=== PATIENT | female | born 1985 | race Caucasian/White ===

== ENCOUNTER → 2019-01-18 11:31 | Outpatient (CLI) | payer OTHER, SELFPAY ==
[2019-01-18 12:06] LABS: Add Manual Diff / Slide Review NO; Basophils Absolute Auto 0 /uL (0-100); Basophils Percent Auto 0.4 % (0-2); Eosinophils Absolute Auto 200 /uL (0-450); Eosinophils Percent Auto 1.9 % (2-4); Hematocrit 41.6 % (36-46); Hemoglobin 14.1 g/dL (12.0-16.0); Lymphocytes Absolute Auto 2500 /uL (1100-4500); Lymphocytes Percent Auto 24.4 % (25-40); Mean Corpuscular HGB Conc 33.8 % (30-36); Mean Corpuscular Hemoglobin 31.1 PG (26-34); Mean Corpuscular Volume 91.9 fL (80-100); Monocytes Absolute Auto 400 /uL (0-900); Monocytes Percent Auto 4.3 % (3-14); Neutrophils Absolute Auto 7000 /uL (1500-7000); Platelet Count 182 X10^3/uL (150-400); Red Blood Cell Count 4.52 X10^6/uL (4.0-5.2); Red Cell Distribution Width 12.7 % (11.6-14.8); White Blood Cell Count 10.1 X10^3/uL (4.5-11.0)
[2019-01-18 12:21] LABS: Appearance Urine UA CLEAR; Bilirubin Urine UA NEGATIVE (NEGATIVE); Color Urine UA YELLOW; Glucose Urine UA NEGATIVE (Negative); Ketones Urine UA NEGATIVE (NEGATIVE); Leukocyte Esterase Urine UA NEGATIVE (NEGATIVE); Nitrite Urine UA NEGATIVE (Negative); Occult Blood Urine UA NEGATIVE (Negative); Protein Urine UA NEGATIVE (Negative); Specific Gravity Urine UA 1.025 (1.000-1.035); Urobilinogen Urine UA 0.2 E.U./dL (0.2)
[2019-01-18 16:56] LABS: Hepatitis B Surface Antigen NEGATIVE s/c (NEGATIVE); Rubella Antibody IgG 21.8 IU/mL (>15)
[2019-01-18 17:14] LABS: Hep C Virus Ab w/Reflex Quant NEGATIVE s/c (NEGATIVE)
[2019-01-18 17:15] LABS: HIV 1 and 2 Antibody NEGATIVE (NEGATIVE)
[2019-01-19 14:40] LABS: RPR Screen Nonreactive (Nonreactive)
== END ==
PROVIDERS: Visit Provider Specialist
DX: Z34.01 Encounter for supervision of normal first pregnancy, first trimester (principal)
CPT/HCPCS: 36415; 80055; 81003; 86703; 86787; 86803; 86850; 86900; 86901; 87086

== ENCOUNTER → 2019-07-20 12:12 | Outpatient (CLI) | payer OTHER, SELFPAY ==
[2019-07-21 14:29] LABS: Strep Grp B PCR NEG for Grp B Strep
== END ==
DX: Z34.83 Encounter for supervision of other normal pregnancy, third trimester (principal); Z3A.36 36 weeks gestation of pregnancy
CPT/HCPCS: 87653

== ENCOUNTER 2019-08-10 19:28 | Inpatient (IN) | payer OTHER, SELFPAY ==
--- NOTE | 2019-08-10 19:45 | P.HPOB_ITS ---
OB HPI Date/Time Date of admission: 08/10/19 Date Patient Seen: 08/10/19 Time Patient Seen: 19:45 History of Present Condition Chief complaint: OBS : 1 Para: 0 Estimated Date of Delivery: 08/16/19 Estimated Gestational Age (weeks): 39 Narrative: Charlotte Cano is a 34 year old female admitted for Prostin induction for distance from the hospital Indications Indication for induction OB: maternal distance History of Present care: good care, initiated at week # (9), number of visits (12) and pounds weight gain (44) Dating criteria: LMP confirmed by 1st trimester US Ultrasounds: normal mid trimester US Obstetrical complications: none Medical complications: none Preadmission Labs Blood type: B (+) positive -: Antibody screen: negative, GBS status: negative, HBsAG: negative, HIV: negative and RPR/VDLR: negative -: Chlamydia screen: not detected and Gonorrhea screen: not detected -: Rubella: immune and Varicella: immune HCAB: negative 1 hr GTT: 192 3 hr GTT: 1 hr (165), 2 hr (159) and 3 hr (84) Fasting blood glucose: 92 Evaluation Evaluation Baseline heart rate: 130 Variability: Moderate (11-25) monitor accelerations: Present monitor decelerations: Absent Contraction Frequency (minutes): 5 Uterine Contraction Intensity: Mild Category of Tracing: I Cervical dilation (cm): 1 Cervical effacement (%): 0 station: -2 [facility] Medical History (Updated 08/10/19 @ 19:51 by Claudia Sanz MD) Anxiety (Acute) Asthma (Acute) Interstitial cystitis (Acute) Family History (Updated 08/10/19 @ 19:52 by Claudia Sanz MD) Mother Hyperlipidemia Multiple myeloma Diabetes mellitus Social History Smoking Status: Never smoker Family History (Updated 08/10/19 @ 19:52 by Claudia Sanz MD) Mother Hyperlipidemia Multiple myeloma Diabetes mellitus Social History Smoking Status: Never smoker Meds Home Medications and Allergies Home Medications Medication Instructions Recorded Confirmed Type albuterol sulfate 90 mcg/actuation 1 inhalation INHALATION Q4-6H PRN 01/13/19 08/11/19 History breath activated powder inhaler prenat.vits,rasheed,[id number] 1 tab PO DAILY 01/13/19 08/11/19 History omeprazole 20 mg capsule,delayed 20 mg PO DAILY #30 cap 05/06/19 08/11/19 Rx release Allergies Allergy/AdvReac Type Severity Reaction Status Date / Time No Known Drug Allergies Allergy Verified 01/13/19 13:30 Review of Systems Review of Systems Narrative: Patient denies headaches, scotomata, epigastric pain. No fevers. Good movement. Brown discharge but no leakage of fluid. ROS Unobtainable: All systems reviewed & are unremarkable except as noted in HPI and below Exam Vital Signs (past 8 hours): Blood pressure 134/65, pulse of 90, temperature 36.4? Narrative Exam Narrative: HEENT exam within normal limits. Lungs are clear to auscultation percussion. Heart is regular rate and rhythm no S3-S4 or murmurs. Abdomen is gravid. is vertex. Extremities with +1 edema and nontender. Objective Labs Result Diagrams: 08/11/19 08:35 Assessment and Plan Assessment and Plan Assessment and Plan narrative: Term at distance from hospital for Prostin ripening of cervix with probable Pitocin in a.m. if favorable
[2019-08-11] MEDS: miSOPROStol 25 MCG TABLET VAG (02:05)
[2019-08-11] MEDS: LACTATED RINGERS 1,000 ML 100 ML IV ×3 (08:30→16:42)
[2019-08-11 08:50] VITALS: BP 134/65
[2019-08-11 08:58] LABS: Add Manual Diff / Slide Review NO; Basophils Absolute Auto 0 /uL (0-100); Basophils Percent Auto 0.3 % (0-2); Eosinophils Absolute Auto 100 /uL (0-450); Hemoglobin 13.7 g/dL (12.0-16.0); Lymphocytes Absolute Auto 2300 /uL (1100-4500); Lymphocytes Percent Auto 16.4 % (25-40); Mean Corpuscular HGB Conc 34.2 % (30-36); Mean Corpuscular Volume 93.6 fL (80-100); Monocytes Absolute Auto 700 /uL (0-900); Monocytes Percent Auto 5.1 % (3-14); Neutrophils Absolute Auto 10600 /uL (1500-7000); Neutrophils Percent Auto 77.2 % (50-75); Platelet Count 145 X10^3/uL (150-400); Red Blood Cell Count 4.27 X10^6/uL (4.0-5.2); White Blood Cell Count 13.8 X10^3/uL (4.5-11.0)
[2019-08-11] MEDS: OXYTOCIN PREMIX 30 UNIT/500 ML PLAST..BAG IV (09:41)
[2019-08-11] MEDS: FENT 2MCG/ML BUPIV 0.125% EPI 200 MCG/100 ML PLAST..BAG 10 MCG EPIDURAL (12:53)
--- NOTE | 2019-08-11 18:35 | PM.OBPRVD ---
Labor & Delivery Delivery date: 08/11/19 Intrapartal events: Prolonged 2nd Stage > 2.5 hours Cervical ripening method: per misoprostal protocol Delivery augmentation: pitocin Delivery monitor: external FHT and external uterine L&D Laceration Description: Vaginal - 1st Degree Delivery repair: chromic (3-0) Estimated blood loss (mL): 100 Anesthesia type: Epidural [place] Baby 1: gender: Male Presentation: vertex position: Right Occiput Anterior Placenta delivery description: Spontaneous cord vessel description: Nuchal Cord score (1 min): 8 score (5 min): 9 Narrative: Patient arrived on Labor and delivery for induction is for distance from the hospital. She received 1 dose of prostaglandins. She had Pitocin augmentation of labor. She received an epidural catheter for pain control. She had category 1 to category 2 tracing throughout labor. With pushing she had variable decelerations. She delivered spontaneously, over an intact perineum. The had a tight nuchal and body cord. The infant was placed on maternal abdomen. After the cord stopped pulsating the cord was clamped, cut, and cord bloods obtained. The placenta delivered spontaneously, intact, with 3 vessels. There were no cervical or perineal tears. She had a first-degree midline vaginal tear that was repaired with 3 0 chromic suture. Estimated blood loss was between 75 and 100 cc. Both mother doing well. Plan for aftercare: Routine care
[2019-08-11] MEDS: IBUPROFEN 600 MG TABLET PO (21:23)
[2019-08-11] MEDS: DERMOPLAST SPRAY 20% 60 ML 1 SPRAY TOP (21:24)
[2019-08-12 05:31] LABS: Hematocrit 34.8 % (36-46); Hemoglobin 12.1 g/dL (12.0-16.0)
[2019-08-12] MEDS: DOCUSATE 250 MG CAPSULE PO (10:57)
[2019-08-12] MEDS: IBUPROFEN 600 MG TABLET PO ×3 (10:57→23:37)
--- NOTE | 2019-08-12 15:03 | P.PNOB_ITS ---
Subjective - OB Subjective Patient comments: no complaints [place] baby status: doing well feeding status: exclusively breast feeding Date Patient Seen: 08/12/19 Time Patient Seen: 15:03 Interval history: day 1. Vaginal delivery. No headaches or scotomata. No epigastric pain. Patient is only needing Motrin for pain. She is urinating and ambulating well. Exam Vital Signs (past 8 hours): Blood pressure 107/63, pulse 74, temperature 98.3? Narrative Exam Narrative: Abdomen is soft, nontender. Uterus is firm, at U, nontender. Mild lochia. Extremities with trace edema and nontender. Blood type is B positive, she is rubella immune, she received Tdap in the 3rd trimester. Objective Labs Result Diagrams: 08/12/19 05:05 Labs: Laboratory Results - last 24 hr 08/12/19 05:05 Hgb 12.1 Hct 34.8 L Assessment & Plan Plan day: 1 plan OB: routine care Time Spent With Patient Time: Total time spent is greater than 50% in coordination of care (as documented) at patient's floor/unit and/or counseling patient: Time with patient: 15-24 minutes
[2019-08-13] MEDS: IBUPROFEN 600 MG TABLET PO ×2 (05:30→11:20)
[2019-08-13] MEDS: DOCUSATE 250 MG CAPSULE PO (09:02)
[2019-08-13 11:30] VITALS: BP 134/82; PULSE 96; RESP 16; TEMP 36.4
--- NOTE | 2019-08-13 11:33 | PM.OBDS.1 ---
Discharge Providers Provider Date of admission: 08/10/19 19:28 Discharge Date: 08/13/19 Consults: 08/10/19 19:50 Consult to Anesthesiology Urgent Comment: Consulting Provider: Anesthesiologist Reason for consultation: Epidural Has provider been notified: No 08/11/19 20:33 Consult to Cup Trimming Machine Operator Routine Comment: Discharge provider: Claudia Sanz MD Summary Hospital Course Date Patient Seen: 08/13/19 Time Patient Seen: 08:00 Procedures: Prostin induction, epidural catheter, spontaneous vaginal delivery, repair first-degree tear Hospital Course: Patient was admitted for Prostin induction Peripartum Data Delivery Method: Natural Vaginal Laceration description: Vaginal - 1st Degree complications: none [place] 1: Gender: Male Disposition of : home Discharge Diagnosis (1) Vaginal delivery: Status: Acute Status at Discharge Cognitive/behavioral status at discharge: oriented Functional status at discharge: independent ambulation Overall status at discharge: patient is progressing back to baseline Time Spent with Patient Time attestation: Total time spent providing and/or coordinating discharge services: Time spent: Less than 30 minutes Objective Labs Result Diagrams: 08/12/19 05:05 Exam Vital Signs (past 8 hours): Blood pressure 134/84, pulse 96, temperature 97.8? Narrative Exam Narrative: Abdomen is soft, nontender. Uterus is firm, at U, nontender. Mild lochia. Extremities with +1 edema and nontender. Blood type is B positive, she is rubella immune. Discharge Plan Discharge Plan Patient Disposition: Home Discharge Med Rec/Prescriptions Prescriptions: Continued prenat.vits,rasheed,qpb-hjmr-ehxli tablet 1 tab PO DAILY RF: 0 albuterol sulfate 90 mcg/actuation aerosol powdr breath activated 1 inhalation INHALATION Q4-6H PRN (Reason: Shortness Of Breath) RF: 0 omeprazole 20 mg capsule,delayed release(DR/EC) 20 mg PO DAILY Qty: 30 RF: 3 Follow up/Referrals: Claudia Sanz MD [Physician] - 1 Month (Appointment on Friday,September at 3:00pm for check.) Provider Discharge Instructions Diet: Regular Activity: Nothing in vagina for 4 weeks Skin/Wound/Dressing Care Report to your healthcare provider any signs of infection, such as:: chills, fever and increased pain Visit Report/Discharge Packet Instructions: DI for Labor and Delivery, Vaginal Discharge Data Attending Provider: Claudia Sanz Admit Date/Time: 08/10/19 19:28 Discharges patient from system. Discharge Date/Time: 08/13/19 14:00
== END 2019-08-13 14:00 | disposition home or self-care (01) | DRG 807 ==
PROVIDERS: Admitting Provider Specialist; Visit Provider Specialist
DX: O70.0 First degree perineal laceration during delivery (principal); Z37.0 Single live birth; Z3A.39 39 weeks gestation of pregnancy; O69.81X0 Labor and delivery complicated by cord around neck, without compression, not applicable or unspecified
CPT/HCPCS: 01967; 36415; 59050; 59200; 59400; 85014; 85018; 85025; 86850; 86900; 86901; G0378; G0379; J2590

== ENCOUNTER → 2022-09-20 12:32 | Outpatient (CLI) | payer OTHER, MEDICAID, SELFPAY | PROVIDERS: PCP Student in an Organized Health Care Education/Training Program; Referring Provider Obstetrics & Gynecology; Visit Provider Obstetrics & Gynecology | DX: Z34.81 Encounter for supervision of other normal pregnancy, first trimester (principal) ==

== ENCOUNTER → 2022-10-09 14:06 | Outpatient (CLI) | payer OTHER, MEDICAID, SELFPAY ==
[2022-10-09 19:54] LABS: Urine N gonorrhoeae NOT DETECTED
[2022-10-09 19:56] LABS: Urine Chlamydia NOT DETECTED
== END ==
PROVIDERS: PCP Student in an Organized Health Care Education/Training Program; Visit Provider Obstetrics & Gynecology
DX: Z34.81 Encounter for supervision of other normal pregnancy, first trimester (principal); Z3A.13 13 weeks gestation of pregnancy
CPT/HCPCS: 87491; 87591

== ENCOUNTER → 2022-10-09 14:58 | Outpatient (CLI) | payer OTHER, MEDICAID, SELFPAY ==
[2022-10-09 15:40] LABS: Add Manual Diff / Slide Review NO; Basophils Absolute Auto 0 /uL (0-100); Basophils Percent Auto 0.5 % (0-2); Eosinophils Absolute Auto 200 /uL (0-450); Hematocrit 38.1 % (36-46); Lymphocytes Absolute Auto 2500 /uL (1100-4500); Lymphocytes Percent Auto 24.4 % (25-40); Mean Corpuscular Hemoglobin 31.3 PG (26-34); Mean Corpuscular Volume 92.1 fL (80-100); Monocytes Absolute Auto 500 /uL (0-900); Monocytes Percent Auto 4.6 % (3-14); Neutrophils Absolute Auto 7000 /uL (1500-7000); Neutrophils Percent Auto 68.5 % (50-75); Platelet Count 170 X10^3/uL (150-400); Red Blood Cell Count 4.14 X10^6/uL (4.0-5.2); Red Cell Distribution Width 13.6 % (11.6-14.8); White Blood Cell Count 10.2 X10^3/uL (4.5-11.0)
[2022-10-10 15:51] LABS: Hepatitis B Surface Antigen NEGATIVE s/c (NEGATIVE); Rubella Antibody IgG 36.2 IU/mL (>15)
[2022-10-10 16:11] LABS: HIV 1 & 2 Ab/Ag 4th Gen Combo NEGATIVE (NEGATIVE); Hep C Virus Ab w/Reflex Quant NEGATIVE s/c (NEGATIVE)
[2022-10-11 07:42] LABS: RPR Screen Non Reactive (Non Reactive); Varicella IgG Antibody 2448 index (Immune >165)
== END ==
PROVIDERS: PCP Student in an Organized Health Care Education/Training Program; Referring Provider Obstetrics & Gynecology; Visit Provider Obstetrics & Gynecology
DX: Z34.81 Encounter for supervision of other normal pregnancy, first trimester (principal); Z3A.13 13 weeks gestation of pregnancy
CPT/HCPCS: 36415; 80055; 86787; 86803; 86850; 86900; 86901; 87389; 87491; 87591

== ENCOUNTER → 2022-12-04 11:21 | Outpatient (CLI) | payer OTHER, MEDICAID, SELFPAY ==
[2022-12-04 19:00] LABS: Appearance Urine UA CLEAR; Bilirubin Urine UA NEGATIVE (NEGATIVE); Color Urine UA YELLOW; Glucose Urine UA NEGATIVE (Negative); Ketones Urine UA NEGATIVE (NEGATIVE); Leukocyte Esterase Urine UA NEGATIVE (NEGATIVE); Nitrite Urine UA NEGATIVE (Negative); Occult Blood Urine UA NEGATIVE (Negative); Protein Urine UA NEGATIVE (Negative); Specific Gravity Urine UA <=1.005 (1.000-1.035); Urobilinogen Urine UA 0.2 E.U./dL (0.2)
[2022-12-04 19:06] LABS: pH Urine UA 6.5 (4.5-8.0)
[2022-12-06 20:07] LABS: AFP Value 64.8 ng/mL (.); Gest Age on Col Date 21.4 weeks (.); Gestational Age Ultrasound (.); Insulin Dep Diabetes No (.); OSBR Risk 1IN 6499 (.); Results Report (.); Test Results *Screen Negative* (.)
== END ==
PROVIDERS: Obstetrics & Gynecology; PCP Student in an Organized Health Care Education/Training Program; Referring Provider Obstetrics & Gynecology; Visit Provider Obstetrics & Gynecology
DX: O09.529 Supervision of elderly multigravida, unspecified trimester (principal); Z3A.00 Weeks of gestation of pregnancy not specified
CPT/HCPCS: 36415; 81003; 82105; 87086

== ENCOUNTER → 2023-03-14 14:13 | Outpatient (CLI) | payer OTHER, MEDICAID, SELFPAY ==
[2023-03-15 15:03] LABS: Strep Grp B PCR NEG for Grp B Strep
== END ==
PROVIDERS: PCP Student in an Organized Health Care Education/Training Program; Visit Provider Obstetrics & Gynecology
DX: Z34.83 Encounter for supervision of other normal pregnancy, third trimester (principal); Z3A.25 25 weeks gestation of pregnancy
CPT/HCPCS: 87653

== ENCOUNTER 2023-04-07 21:56 | Inpatient (IN) | payer OTHER, MEDICAID, SELFPAY ==
[2023-04-07 22:39] VITALS: BP 131/63
[2023-04-07] MEDS: miSOPROStoL 25 MCG TABLET VAG (22:54)
[2023-04-07 23:03] LABS: Add Manual Diff / Slide Review NO; Basophils Absolute Auto 0 /uL (0-100); Basophils Percent Auto 0.4 % (0-2); Eosinophils Absolute Auto 100 /uL (0-450); Eosinophils Percent Auto 1.2 % (2-4); Hemoglobin 12.9 g/dL (12.0-16.0); Lymphocytes Absolute Auto 2700 /uL (1100-4500); Lymphocytes Percent Auto 24.6 % (25-40); Mean Corpuscular Hemoglobin 31.8 PG (26-34); Mean Corpuscular Volume 93.4 fL (80-100); Monocytes Absolute Auto 700 /uL (0-900); Monocytes Percent Auto 6.1 % (3-14); Neutrophils Absolute Auto 7500 /uL (1500-7000); Neutrophils Percent Auto 67.7 % (50-75); Platelet Count 132 X10^3/uL (150-400); Red Blood Cell Count 4.06 X10^6/uL (4.0-5.2); Red Cell Distribution Width 14.4 % (11.6-14.8); White Blood Cell Count 11.1 X10^3/uL (4.5-11.0)
[2023-04-08] MEDS: miSOPROStoL 25 MCG TABLET VAG (03:09)
--- NOTE | 2023-04-08 08:06 | P.HPOB_ITS ---
OB HPI Date/Time Date of admission: 04/07/23 Date Patient Seen: 04/08/23 Time Patient Seen: 08:06 History of Present Condition Chief complaint: Induction : 2 Para: 1 Estimated Date of Delivery: 04/13/23 Estimated Gestational Age (weeks): 39+2 Narrative: Charlotte Cano is a 38 year old admittedd for induction now at 39+2 wks EGA due to AMA and the fact that she and her live on [facility] are concerned re: their relative isolation and difficulty getting from [facility] to [place]. Of note, PLT count on admission is 132k. GBS is negative. Indications Indication for induction OB: maternal distance and other (AMA) History of Present care: good care Dating criteria: LMP confirmed by 1st trimester US Ultrasounds: normal 1st trimester US and normal mid trimester US Obstetrical complications: none Medical complications: none Preadmission Labs Blood type: B (+) positive -: Antibody screen: negative, GBS status: negative, HBsAG: negative, HIV: negative and RPR/VDLR: negative -: Chlamydia screen: not detected and Gonorrhea screen: not detected -: Rubella: immune and Varicella: immune HCT: 38.0 HCAB: negative PAP: Normal Quad screen: Normal (AFP screen Negative) Cell-free DNA: Low risk female infant 1 hr GTT: 155 3 hr GTT: 1 hr (171), 2 hr (150) and 3 hr (83) Fasting blood glucose: 86 Prior (ies) History: x 1 Evaluation Evaluation Baseline heart rate: 135 Variability: Moderate (11-25) monitor accelerations: Present Monitor Decelerations: Absent Contraction Frequency (minutes): 4 Uterine Contraction Intensity: Moderate Category of Tracing: Reactive Status: Category l Dilation (cm): 2 Effacement (%): 80 Dilation: 1-2 cm Effacement: >/=80% station: -3 Position of cervix: mid Consistency: soft [place] score: 7 PFSH Medical History (Updated 03/26/23 @ 10:40 by Claudia Sanz MD) Anxiety (~2002) Asthma (~1987) Chicken pox (~1989) Depression (~2002) Interstitial cystitis depression Vaginal delivery (~08/2019) Surgical History (Updated 11/05/22 @ 18:54 by Shaneka Mittal) Anesthesia History of laparoscopic appendectomy (09/14/22) [place] teeth extracted Family History (Updated 11/05/22 @ 18:55 by Shaneka Mittal) Mother Hyperlipidemia Multiple myeloma Diabetes mellitus Cancer Hypertension Social History marital status: unmarried,living together number of children: 1 household members: significant other and children lives independently: Yes caregiver/support person: Yes housing: house pets and animals: Yes (2 dogs, 4 cats. Aware of toxo precautions) education level: college (vasyl's degree) occupational status: employed ([employer]) current occupational exposures/hazards: Yes (aware of precautions, will get chemical respirator) special sadie needs: No travel history: recent (domestic only) seatbelt use: always water heater temp set < 120 deg: Yes working smoke detector in home: Yes fire extinguisher in home: Yes carbon monox detector in home: Yes firearms in home: No do you feel safe at home: Yes Smoking Status: Former smoker second hand exposure: No alcohol intake: former (rarely when not ) substance use type: marijuana (in the past, not while or ) during the past year weight has: increased > 10 lbs well-balanced diet: daily or most days daily servings fruits/ve-4 caffeine: Yes (aware of 200mg limit, very little when ) Type(s) of exercise: none Meds Home Medications and Allergies Home Medications Medication Instructions Recorded Confirmed Type albuterol sulfate 90 mcg/actuation 1 inhalation inhalation Q4-6H PRN 01/13/19 04/07/23 History breath activated powder inhaler Shortness Of Breath prenat.vits,rasheed,krz-[id number] 1 tab PO DAILY 01/13/19 04/07/23 History fluoxetine 40 mg capsule 40 mg PO DAILY 09/12/22 04/07/23 History omeprazole 40 mg capsule,delayed 40 mg PO DAILY #30 caps 12/04/22 04/07/23 Rx release Allergies Allergy/AdvReac Type Severity Reaction Status Date / Time No Known Drug Allergies Allergy Verified 04/07/23 22:44 OB Exam Vital signs Blood Pressure: 123/75 Pulse Rate: 84 Respiratory Rate: 16 Temperature: 97.7 F HENMT Head: normal to inspection, normocephalic and atraumatic Eyes General: appearance normal, both eyes and all related structures Resp Effort & Inspection: normal respiratory effort and able to speak in complete sentences Auscultation: clear to auscultation bilaterally Cardio Rate: regular rate Rhythm: regular rhythm Heart Sounds: S1 normal, S2 normal and no murmurs Extremities Lower extremity: Yes normal to inspection GI Inspection: normal to inspection Palpation: Yes soft and Yes no hepatosplenomegaly Uterus Location (Fundal Height): 39 Presentation: vertex Estimated Weight (lbs): 9 Objective Labs 04/07/23 22:30 Labs: Laboratory Results - last 24 hr 04/07/23 04/07/23 22:30 22:30 WBC 11.1 H RBC 4.06 Hgb 12.9 Hct 38.0 MCV 93.4 MCH 31.8 MCHC 34.0 RDW 14.4 Plt Count 132 L Neut % (Auto) 67.7 Lymph % (Auto) 24.6 L [place] % (Auto) 6.1 Eos % (Auto) 1.2 L Baso % (Auto) 0.4 Neut # (Auto) 7500 H Lymph # (Auto) 2700 [place] # (Auto) 700 Eos # (Auto) 100 Baso # (Auto) 0 Blood Type B Positive Antibody Screen Negative Assessment and Plan Assessment and Plan Assessment and Plan narrative: ASSESSMENT 1. Intrauterine , 39+2 wks EGA 2. Advanced maternal age 3. Idiopathic thrombocytopenia of 4. GBS negative status PLAN 1. Admit for ripening and induction 2. See admission orders Time Spent with Patient Total time spent with greater than 50% in coordination of care (as documented) at patient's floor/unit and/or counseling patient:: 15-24 minutes
[2023-04-08] MEDS: OXYTOCIN PREMIX 30 UNIT/500 ML PLAST..BAG IV (09:26)
[2023-04-08] MEDS: LACTATED RINGERS 1,000 ML 100 ML IV (09:27)
--- NOTE | 2023-04-08 10:54 | PM.AN.REGBLK ---
[facility] Pre-procedure Procedure: Continuous Lumbar Epidural for L&D Attending OB provider: Nam Cornejo PMH/ROS narrative: term induction, AMA, no complications. PMH asthma, anxiety/depression ASA Class: II Labs: Hct 38.0 % (36-46) 04/07/23 22:30 Plt Count 132 X10^3/uL (150-400) L 04/07/23 22:30 Medications: Current Medications Generic Name Dose Route Start Last Admin Trade Name Freq PRN Reason Stop Dose Admin Acetaminophen 650 mg 04/07/23 22:02 Acetaminophen 325 Mg Tablet PO Q4HR PRN Fever/Mild Pain (1-3) Calcium Carbonate 500 mg 04/07/23 22:02 Calcium Carbonate 500 Mg Tab PO Q2H PRN Dyspepsia Calcium Carbonate 1,000 mg 04/08/23 08:03 Calcium Carbonate 500 Mg Tab PO Q4HR PRN Dyspepsia Carboprost Tromethamine 250 mcg 04/08/23 08:02 Carboprost 250 Mcg/Ml Ampul IM Q90M PRN Bleeding Fentanyl 50 mcg 04/08/23 08:03 Fentanyl 100 Mcg/2 Ml Inj IV Q1H PRN Pain, Moderate (4-6) Lactated Ringer's 1,000 mls @ 100 mls/hr 04/08/23 08:15 04/08/23 09:27 Lactated Ringers IV 100 mls/hr CONT ZECHARIAH Administration Oxytocin/Lactated Ringer's 30 unit in 500 mls @ 200 mls/hr 04/08/23 08:02 Oxytocin Premix IV CONT PRN Bleeding Protocol Tranexamic Acid 1,000 mg/ 100 mls @ 200 mls/hr 04/08/23 08:02 Sodium Chloride IV NOW PRN Bleeding Oxytocin/Lactated Ringer's 30 unit in 500 mls @ 1 mls/hr 04/08/23 08:11 04/08/23 09:26 Oxytocin Premix IV 1 milliunit/min TITRATE ZECHARIAH 1 mls/hr Administration Protocol 1 MILLIUNIT/MIN Lidocaine HCl 20 ml 04/08/23 08:02 Lidocaine 1% 20 Ml INJ INTRA-OP PRN Post Delivery Methylergonovine Maleate 0.2 mg 04/08/23 08:02 Methylergonovine 0.2 Mg Tablet PO Q6HR PRN Heavy Bleeding Methylergonovine Maleate 0.2 mg 04/08/23 08:02 Methylergonovine 0.2 Mg/Ml Vial IM NOW PRN Bleeding Misoprostol 25 mcg 04/07/23 22:15 04/08/23 03:09 Misoprostol 25 Mcg Tablet VAG 25 mcg Q4H ZECHARIAH Administration Misoprostol 800 mcg 04/08/23 08:02 Misoprostol 200 Mcg Tablet IN NOW PRN Bleeding Misoprostol 400 mcg 04/08/23 08:02 Misoprostol 200 Mcg Tablet SL NOW PRN Bleeding Naloxone HCl 0.2 mg 04/08/23 08:02 Naloxone 0.4 Mg/Ml Vial IV Q2MIN PRN Opiate Reversal Ondansetron HCl 8 mg 04/08/23 12:00 Ondansetron 4 Mg/2 Ml Inj IV Q6HR ZECHARIAH Oxytocin 10 unit 04/08/23 08:02 Oxytocin 10 Unit/Ml Vial IM NOW PRN Bleeding Zolpidem Tartrate 5 mg 04/07/23 22:02 Zolpidem 5 Mg Tablet PO BEDTIME PRN Sleep Allergies: Allergies Allergy/AdvReac Type Severity Reaction Status Date / Time No Known Drug Allergies Allergy Verified 04/07/23 22:44 Procedure Insertion date: 04/08/23 Insertion time: 11:03 Prep/Local: betadine x3 and 1% lidocaine Interspace: L3-4 Patient position: sitting Needle: 18 gauge Hustead (CSE: 27g pencan through hustead, clear CSF, 2.5mg MPF bupiv) Loss of resistance with: saline REGINA at (cm): 6 Catheter placed at SKIN (cm): 12 Catheter in SPACE (cm): 6 Insertion: No CSF, No Blood, No Paresthesia with insertion, No Paresthesia with injection and No Test dose reaction Initial Medications TEST DOSE time: 11:05 TEST DOSE: 1.5% lidocaine with epinephrine 1:200k (mL): 3 BOLUS DOSE time: 11:10 BOLUS DOSE (mL): 4 BOLUS DOSE med: other (infusate) Infusion INFUSION: 0.125% bupivacaine and with fentanyl 2 mcg/mL Initial rate (mL/hr): 8 Subsequent interventions: PCEA 8/h+4 Post-procedure Anesthesia time START: 10:56 Anesthesia time END: 12:40 Post-procedure Anesthesia Assessment: Yes CV function: HR/BP stable, Yes Resp function: RR/sat/airway adequate, Yes Post-op hydration adequate, Yes Pain control adequate, Yes Nausea & vomiting absent, Yes Temperature > 36 C, Yes Mental status appropriate and No Anesthesia complications
[2023-04-08] MEDS: FENT 2MCG/ML BUPIV 0.125% EPI 200 MCG/100 ML PLAST..BAG 8 MCG EPIDURAL (11:05)
--- NOTE | 2023-04-08 12:15 | PM.OBPNLAB ---
Date/Time Date Patient Seen: 04/08/23 Time Patient Seen: 12:15 Pain Control Pain control: tolerating well and epidural Pelvic Exam Dilation (cm): 10 Effacement (%): 100 station: 0 (0-+1) Amniotic membrane status: Ruptured (SROM, moderate meconium) Contractions Contractions on admission: none Monitor mode: External Pitocin rate (mU/min): 3 Contraction frequency (min): 3 Contraction duration (min): 1 Contraction pattern: Regular Contraction phase: Resting Status status: Category ll Heart Rate Baseline: 125 Monitor Accelerations: Present Monitor Decelerations: Variable Monitor Variability: Moderate Assessment and Plan Assessment: induction ongoing Plan: continuous present management Comments: Anticipate . Consider vacuum extraction if variables worsen.
[2023-04-08 12:55] VITALS: BP 123/75; PULSE 84; RESP 16; TEMP 36.5
--- NOTE | 2023-04-08 12:57 | PM.OBPRVD ---
Events: Other (Advanced maternal age) Labor & Delivery Delivery date: 04/08/23 Intrapartal Events: Deceleration (Variable decelerations, 2nd stage) Cervical ripening method: per misoprostal protocol Induction method: per pitocin protocol Delivery monitor: external FHT and external uterine Route of delivery: Episiotomy description: None L&D Laceration Description: None Estimated blood loss (mL): 250 Anesthesia Type: Epidural Complications: None Narrative: Following a brief 2nd stage, the patient delivered spontaneously over an intact perineum a viable female with a weight of 4 838 g (10 lb 10.7 oz) and Apgars of 6.9. No shoulder dystocia was encountered but a brief body dystocia was noted along with a tight nuchal cord. The nuchal cord was reduced following delivery of the infant and skin to skin contact was initiated immediately. Because the was not as vigorous as expected and in the face of moderate meconium, late were clamping was terminated after about 30-40 seconds. Once the umbilical cord was doubly clamped and cut, a sample of cord blood was obtained for routine studies. The placenta was delivered easily with gentle cord traction and suprapubic countertraction. Intravenous Pitocin was initiated immediately following delivery of the placenta and bleeding rapidly controlled following delivery. Inspection of the perineum showed that there were no abrasions or lacerations noted. The delivery process was concluded with both mother and baby having tolerated the delivery well. Sponge needle counts were correct prior to and following delivery. Baby 1: Infant gender: Female Presentation: vertex Position: Left Occiput Anterior Placenta delivery description: Spontaneous Cord Vessel Description: 3 Vessels and Nuchal Cord score (1 min): 6 score (5 min): 9 weight: 10 lb 10.655 oz Plan for aftercare: Routine care
[2023-04-08] MEDS: IBUPROFEN 600 MG TABLET PO ×2 (16:22→21:25)
[2023-04-08] MEDS: DOCUSATE 100 MG CAPSULE PO (21:25)
[2023-04-08] MEDS: LANOLIN OINT 7 GM 1 APPLIC TOP (21:25)
[2023-04-08] MEDS: ACETAMINOPHEN 325 MG TABLET 650 MG PO (21:26)
[2023-04-09 04:55] LABS: Add Manual Diff / Slide Review NO; Basophils Absolute Auto 100 /uL (0-100); Basophils Percent Auto 0.6 % (0-2); Eosinophils Absolute Auto 200 /uL (0-450); Eosinophils Percent Auto 1.4 % (2-4); Hematocrit 36.1 % (36-46); Hemoglobin 12.3 g/dL (12.0-16.0); Lymphocytes Absolute Auto 3100 /uL (1100-4500); Lymphocytes Percent Auto 26.1 % (25-40); Mean Corpuscular Hemoglobin 31.6 PG (26-34); Mean Corpuscular Volume 92.9 fL (80-100); Monocytes Absolute Auto 700 /uL (0-900); Monocytes Percent Auto 5.5 % (3-14); Neutrophils Absolute Auto 8000 /uL (1500-7000); Neutrophils Percent Auto 66.4 % (50-75); Platelet Count 111 X10^3/uL (150-400); Red Blood Cell Count 3.89 X10^6/uL (4.0-5.2); Red Cell Distribution Width 14.5 % (11.6-14.8)
[2023-04-09] MEDS: ACETAMINOPHEN 325 MG TABLET 650 MG PO (06:31)
[2023-04-09] MEDS: IBUPROFEN 600 MG TABLET PO (06:32)
--- NOTE | 2023-04-09 08:39 | P.DS_ITS ---
Discharge Providers Provider Date of admission: 04/07/23 21:56 Discharge Date: 04/09/23 Primary care physician: Luke Espinoza MD Consults: 04/08/23 08:03 Consult to Anesthesiology Urgent Comment: Consulting Provider: Nam Cornejo Reason for consultation: Epidural Has provider been notified: No 04/09/23 13:19 Consult to D[employer] Technologist Routine Comment: Discharge provider: Nam Cornejo MD Summary Hospital Course Date Patient Seen: 04/09/23 Time Patient Seen: 08:00 Diagnoses: Intrauterine gestation, 39+ 2 weeks gestational age, delivered by spontaneous vaginal Advanced maternal age Hospital Course: Charlotte was admitted on the evening of 04/07/2023 for cervical ripening at 39+ 1 weeks due to advanced maternal age and the fact that she and her live on [facility] which poses significant logistical concerns for her. She was initiated on oral Cytotec for cervical ripening and Pitocin was initiated on the morning of 04/08/2023. She progressed nicely with an epidural in place and early on the afternoon 04/08/2023 delivered a viable female infant with weight of 4838 g (10 lb 7 oz), and Apgars of 6/9. Following delivery both mother and baby have done extremely well with the mother experiencing prompt return of bowel and bladder function, she is ambulating independently, tolerating regular diet, and her pain is well relieved with oral pain medications. She will be discharged at this time to home after counseling regarding precautionary symptoms, limitations of activity, medications, and plans for follow-up which will be in 6 weeks. Medications at discharge will include resumption of all pre-admission medications and she will use iibk-zle-nlxziep Tylenol and/or ibuprofen for pain relief as needed. Peripartum Data Infant Delivery Method: Natural Vaginal Laceration Description: None Episiotomy description: None complications: none 1: Gender: Female Disposition of : home Status at Discharge Cognitive/behavioral status at discharge: oriented Functional status at discharge: independent ambulation Overall status at discharge: patient is progressing back to baseline Time Spent with Patient Time attestation: Total time spent providing and/or coordinating discharge services: Time spent: Less than 30 minutes Objective Labs 04/09/23 04:40 Labs: Laboratory Results - last 24 hr 04/09/23 04:40 WBC 12.0 H RBC 3.89 L Hgb 12.3 Hct 36.1 MCV 92.9 MCH 31.6 MCHC 34.0 RDW 14.5 Plt Count 111 L Neut % (Auto) 66.4 Lymph % (Auto) 26.1 [place] % (Auto) 5.5 Eos % (Auto) 1.4 L Baso % (Auto) 0.6 Neut # (Auto) 8000 H Lymph # (Auto) 3100 [place] # (Auto) 700 Eos # (Auto) 200 Baso # (Auto) 100 Exam Const General: cooperative and comfortable Nutritional Appearance: average body habitus Orientation: alert and oriented x3 HENMT Head: normal to inspection, atraumatic and abrasion Ears: hearing grossly normal bilaterally Face and sinus: face symmetric Eyes General: appearance normal, both eyes and all related structures Conjunctivae: conjunctivae normal Sclera: sclerae normal EOM: EOM intact bilaterally Neck Neck: normal visual inspection Resp Effort & Inspection: normal respiratory effort and able to speak in complete sentences GI Inspection: normal to inspection Palpation: soft, no hepatosplenomegaly, mass (Minimally tender, firm fundus, U - 4) and tender (Mild, diffuse tenderness) External Female Exam: other (No significant bleeding noted) Psych Appearance: grossly normal Mental Status: mental status grossly normal Speech and Movement: speech and movement normal Mood: congruent mood Affect: normal affect Attitude: cooperative Thought Process: normal Thought Content: normal Judgment: judgment good Discharge Plan Discharge Plan Patient Disposition: Home Provider Discharge Comment: Please review the written instructions you received when you were discharged from the hospital. Your follow-up appointment will be scheduled for 6 weeks after delivery and I look forward to seeing you then. If however in the meanwhile you have any concerns, problems, or questions, please contact me either through the office phone at [phone], or via the patient portal. Discharge orders & Medications Prescriptions: Continued omeprazole 40 mg capsule,delayed release(DR/EC) 40 mg PO DAILY Qty: 30 6RF prenat.vits,rasheed,uvw-anhj-jktij tablet 1 tab PO DAILY albuterol sulfate 90 mcg/actuation aerosol powdr breath activated 1 inhalation INHALATION Q4-6H PRN (Reason: Shortness Of Breath) fluoxetine 40 mg capsule 40 mg PO DAILY Follow up/Referrals: Luke Espinoza MD [Primary Care Provider] - Nam Cornejo MD [Physician] - (please call to schedule a 6 week appointment.) Discharge Health Status Multidrug resistant organism: No MDRO Diet/Activity/Treatments Diet: Diet as Tolerated Activity: As tolerated Other treatments: Qpyw-esw-pmhfzbc Tylenol and/or ibuprofen may be used for additional pain relief. Gwjz-kap-bgovqhm stool softeners and/or MiraLax may be used as needed for constipation. Skin/Wound/Dressing Care Report to your healthcare provider any signs of infection, such as:: chills, fever, increased pain, unusual drainage and unusual redness Dressing: N/A Visit Report/Discharge Packet Instructions: DI for Labor and Delivery, Vaginal , DI for and Nipple Soreness Stand Alone Forms: Discharge: Care Discharge Data Primary Care Provider: Luke Espinoza Discharges patient from system. Discharge Date/Time: 04/09/23 11:00
[2023-04-09] MEDS: FLUoxetine 20 MG CAPSULE 40 MG PO (09:27)
[2023-04-09] MEDS: DOCUSATE 100 MG CAPSULE PO (09:27)
== END 2023-04-09 11:00 | disposition home or self-care (01) | DRG 560 ==
PROVIDERS: Specialist; Admitting Provider Obstetrics & Gynecology; PCP Student in an Organized Health Care Education/Training Program; Referring Provider Obstetrics & Gynecology; Visit Provider Obstetrics & Gynecology
DX: O99.344 Other mental disorders complicating childbirth (principal); O76 Abnormality in fetal heart rate and rhythm complicating labor and delivery; Z3A.39 39 weeks gestation of pregnancy; Z37.0 Single live birth; F41.9 Anxiety disorder, unspecified; O99.892 Other specified diseases and conditions complicating childbirth; J45.909 Unspecified asthma, uncomplicated
CPT/HCPCS: 36415; 59050; 59200; 59409; 85025; 86850; 86900; 86901; G0379; J2590